=== PATIENT | female | born 1965 | race Two or more races ===

== ENCOUNTER → 2020-03-13 | Outpatient (CLI) | payer OTHER ==
[2016-05-27 11:51] VITALS: BP 107/71
[~2020-03-13] MED LIST: ALPR0.25 PO; ALPR0.5T PO; CETI10TA24 PO; CIPR250T30 PO; CYCL10TA2 PO; DOCU-109 PO; HYDR-2761 PO; OMEP40CA45 PO; TRAM50TA PO
[2020-03-13 13:56] LABS: BASO % 1 % (0-3); EOS # 0.1 x10^3/uL (0.0-0.7); EOS % 1 % (0-3); HEMATOCRIT 37.2 % (36.0-47.0); HEMOGLOBIN 12.8 g/dL (12.0-15.5); LYMPH # 2.3 x10^3/uL (1.0-4.8); LYMPH % 41 % (24-48); MEAN CORPUSCULAR HEMOGLOBIN 31 pg (25-35); MEAN CORPUSCULAR HGB CONC 34 g/dL (31-37); MEAN CORPUSCULAR VOLUME 90 fL (79-100); MONO # 0.4 x10^3/uL (0.0-1.1); MONO % 7 % (0-9); NEUT # 2.8 x10^3/uL (1.8-7.7); NEUT % 50 % (31-73); PLATELET COUNT 197 x10^3/uL (140-400); RED BLOOD COUNT 4.16 x10^6/uL (3.50-5.40); RED CELL DISTRIBUTION WIDTH 12.3 % (11.5-14.5); WHITE BLOOD COUNT 5.5 x10^3/uL (4.0-11.0)
[2020-03-13 14:12] LABS: ALBUMIN/GLOBULIN RATIO 1.1 (1.0-1.7); CALCIUM 9.1 mg/dL (8.5-10.1); CREATININE 0.9 mg/dL (0.6-1.0); GFR 64.8; POTASSIUM 3.8 mmol/L (3.5-5.1); TOTAL BILIRUBIN 0.8 mg/dL (0.2-1.0); TOTAL PROTEIN 7.8 g/dL (6.4-8.2)
== END ==
LOC: SURGPAT 13:20
PROVIDERS: ATTEND Neurological Surgery
DX: Z01.818 Encounter for other preprocedural examination (principal); Z11.59 Encounter for screening for other viral diseases; M54.12 Radiculopathy, cervical region; M54.2 Cervicalgia; Z98.1 Arthrodesis status
CPT/HCPCS: 80053; 85025; 87641; U0003

== ENCOUNTER 2020-03-18 10:50 | Observation (INO) | payer OTHER ==
--- NOTE | 2020-03-17 17:24 | HP ---
ADMIT DATE: 03/18/2020 PREOPERATIVE HISTORY AND PHYSICAL DATE OF SURGERY: 03/18/2020. HISTORY OF PRESENT ILLNESS: The patient is a pleasant 54-year-old who has difficulty with right-sided neck pain, which radiates up behind her ear to her right face and ear. This problem started in 06/2019. She rates her pain as a 10/10. She can also experienced numbness in both of her arms. She also notes intermittent mild difficulty with swallowing. She is taking Flexeril and ibuprofen. She has had cervical epidural steroid injections, which did not help. She saw a chiropractor. PAST MEDICAL HISTORY: Tuberculosis, headaches or migraines, arthritis, cold sores and fever blisters. PAST SURGICAL HISTORY: in 1984, in 1991, bunionectomy in 1992, tonsillectomy in 1969, breast reduction in 2009, rhinoplasty 2009, septoplasty 2009, LMD L4-L5 03/2015, complete hysterectomy in 1999, ACDF C5-C6 in 05/2016. FAMILY HISTORY: Cancer and diabetes. SOCIAL HISTORY: . Exercises weekly. Former smoker. Drinks alcohol 1-2 times per year. ALLERGIES: MORPHINE, CODEINE, AND SULFA. CURRENT MEDICATIONS: Omeprazole, alprazolam, Flexeril, vitamin B12, Motrin, vitamin D. REVIEW OF SYSTEMS: A 12-point review of systems was obtained and is noncontributory except for that mentioned above. PHYSICAL EXAMINATION: NEUROSURGERY EXAMINATION: GENERAL APPEARANCE: Alert, pleasant, no acute distress. HEAD: Normocephalic and atraumatic. SKIN: Warm and dry. MUSCULOSKELETAL: Well-healed cervical incision. NECK AND THYROID: [id number] tenderness with palpation along the right neck extending up behind the right ear. MUSCULOSKELETAL: Cervical paraspinal muscle bulk is normal, cervical range of motion is restricted, normal range of motion of the upper extremities bilaterally. EXTREMITIES: No clubbing, cyanosis, or edema. NEUROLOGIC: Alert and oriented x 3, normal recent and remote memory, strength 5/5 in bilateral upper and lower extremities, sensory was intact to light touch in upper and lower extremities. Reflexes are present and symmetric in upper and lower extremities bilaterally, normal gait. IMAGING: I reviewed a cervical MRI scan. At C3-C4 on the right, there is a large disc osteophyte complex with marked narrowing of the right neural foramen. She also has lateral recess and foraminal narrowing at C6-C7 below her previous anterior cervical diskectomy and fusion at C5-C6. ASSESSMENT/ PLAN: Based on the pattern of her pain, I believe the problems at the C3-L4 on the right are responsible. Although this is something that could be operated on from behind, I do feel that an anterior operation will be more effective decompressing the nerve root and the osteophyte complex. I discussed this with her in detail including the rationale, technique and risks and expected postoperative course. She understands. She would like to go ahead. We will make the arrangements. CRISTIANA DENNIS MD DR: CONNOR/bubba JOB#: [id number] / [id number] SUDEEP
[2020-03-18] VITALS (9 sets, daily range): BP systolic 107–135; BP diastolic 64–77
[~2020-03-18] VITALS: Ht 167.6 cm; Wt 75.9 kg
[~2020-03-18 10:50] MED LIST changes: +BACITRACIN 50,000 UNIT in IV NORMAL SALINE 1000ML BAG 1,000 ML IRR ONE; +BUPIVACAINE-EPI 0.5%-1:200000 MPF 30 ML VIAL. ONE; +GELATIN SPONGE SIZE 100. ONE; -HYDR-2761 PO; +IV RINGERS,LACTATED 1000ML 1,000 ML IV SCH; +ONDANSETRON PF 4 MG/2 ML VIAL. IV PRN; +PROCHLORPERAZINE 10 MG/2 ML VIAL. IV PRN; +THROMBIN TOPICAL 20,000 UNIT SPRAY.SYRN KIT TP ONE; +fentaNYL PF VIAL 100 MCG/2 ML VIAL IV PRN
[2020-03-18] MEDS ORDERED: fentaNYL PF VIAL 100 MCG/2 ML VIAL ONE ×3 (11:20→16:17)
[2020-03-18] MEDS ORDERED: PROPOFOL 50 ML IV ONE ×2 (11:20→14:21)
[2020-03-18] MEDS ORDERED: LIDOCAINE 2% PF 5 ML VIAL. ONE (11:20)
[2020-03-18] MEDS ORDERED: PROPOFOL 10 MG/ML (20ML) VIAL. IV ONE (11:20)
[2020-03-18] MEDS ORDERED: REMIFENTANIL 2 MG VIAL. IV ONE (11:21)
[2020-03-18] MEDS ORDERED: SUCCINYLCHOLINE 200 MG/10 ML VIAL. ONE (11:21)
[2020-03-18] MEDS ORDERED: ROCURONIUM 50 MG/5 ML VIAL. ONE (11:21)
[2020-03-18] MEDS ORDERED: PHENYLEPHRINE in 0.9% NACL PF 1 MG/10 ML SYRINGE. IV ONE ×2 (13:02→14:50)
[2020-03-18] MEDS ORDERED: DEXAMETHASONE SOD PHOS 20 MG/5 ML VIAL. ONE (13:19)
[2020-03-18] MEDS ORDERED: DESFLURANE 61 TO 120 MINUTES IH ONE (13:19)
[2020-03-18] MEDS ORDERED: ONDANSETRON PF 4 MG/2 ML VIAL. ONE (13:44)
[2020-03-18] MEDS ORDERED: ePHEDrine PF IN SALINE 50 MG/10 ML SYRINGE. IV ONE (13:47)
[2020-03-18] MEDS ORDERED: diphenhydrAMINE HCL 25 MG CAPSULE PO PRN (15:30)
[2020-03-18] MEDS ORDERED: HYDROcodone/APAP 5/325MG 1 TAB TABLET PO PRN ×2 (15:30)
[2020-03-18] MEDS ORDERED: MAG HYDROX/ALUMINUM HYD/SIMETH 30 ML ORAL.SUSP PO PRN (15:30)
[2020-03-18] MEDS ORDERED: CALCIUM CARBONATE 500 MG TAB.CHEW PO PRN (15:30)
[2020-03-18] MEDS ORDERED: ALPRAZolam 0.25 MG TABLET PO PRN (15:30)
[2020-03-18] MEDS ORDERED: MAGNESIUM HYDROXIDE 2,400 MG/30 ML ORAL.SUSP. PO PRN (15:30)
[2020-03-18] MEDS ORDERED: ONDANSETRON PF 4 MG/2 ML VIAL. IVP PRN (15:30)
[2020-03-18] MEDS ORDERED: CYCLOBENZAPRINE 10 MG TABLET. PO PRN (15:30)
[2020-03-18] MEDS ORDERED: 0.9 % SODIUM CHLORIDE 10 ML DISP.SYRIN. IV PRN (15:30)
[2020-03-18] MEDS ORDERED: ACETAMINOPHEN 325 MG TABLET. PO PRN (15:30)
[2020-03-18] MEDS ORDERED: NALOXONE 0.4 MG/ML VIAL. IV PRN (15:30)
[2020-03-18] MEDS: fentaNYL PF VIAL 100 MCG/2 ML VIAL IV PRN ×4 (15:46→16:54)
--- NOTE | 2020-03-18 17:15 | NUR ---
received from recovery. 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 she has good radial pulses bilateral and good sensation and motion in her lower extremities. she states she was having pain down both arms and numbness left >right arm. denies numbness in the right and slightly in left. Much better compared to prior to surgery. she does have a sore throat, but is able to swallow water at this time. given clear liquids and meal ordered. she was medicated with fentanyl iv and a Flexeril at bedside
[2020-03-18] MEDS: POTASSIUM CL 20MEQ D5-0.45NACL 1,000 ML IV SCH (17:33)
[2020-03-18] MEDS: fentaNYL PF VIAL 100 MCG/2 ML VIAL IVP PRN ×2 (17:34→21:05)
--- NOTE | 2020-03-18 18:50 | OP ---
DATE OF SURGERY: 03/18/2020 PREOPERATIVE DIAGNOSES: Foraminal narrowing with cervical radiculopathy, right C3-C4. POSTOPERATIVE DIAGNOSES: Foraminal narrowing with cervical radiculopathy, right C3-C4. OPERATION PERFORMED: Anterior cervical microdiscectomy, C3-C4; anterior cervical interbody fusion, C3-C4; anterior cervical plate, C3-C4. The operation was done with EMG monitoring, SSEP monitoring, NIMS monitoring, fluoroscopy, microscopic dissection. SURGEON: Cecilio Dennis M.D. CAR DISPATCHER: JOZEF Bernabe assisted with the surgery. She assisted with the exposure, microdecompression, placement of the interbody fusion cage and plate and closure. OPERATIVE INDICATIONS: The patient is a very pleasant 54-year-old who developed problems with severe right cervical radiculopathy. She has had problems similarly in the past and in fact underwent an ACDF in the past at C5-C6. I spoke with her about surgery and the risks involved and explained that my preference would be to operate anteriorly at this point at C3-C4. She understood the surgery and risks. She wished for me to go ahead. As speaking about the surgery, I spoke about the soft tissue structures of the neck with swelling and injury to each. I discussed the technique of the operation. I spoke about the expected postoperative course. DESCRIPTION OF PROCEDURE: Following general endotracheal anesthesia, the patient was positioned in a neutral position. The anterior cervical region was prepped and draped in the standard fashion. KATHY hose and AV impulse boots were applied for DVT prophylaxis. Microscope was draped. Fluoroscopy was draped and brought into field. Monitoring was established. Ancef 2 grams were given less than 1 hour prior to initiation of the surgery. Using fluoroscopic guidance, her previous incision, which was in a good position for the anterior approach at C3-C4 was reopened. I did carry the incision slightly further laterally. I dissected down through skin and subcutaneous tissue and I passed through to the platysma and then directed my attention to the medial aspect of sternocleidomastoid and carotid artery sheath. I reflected the trachea and esophagus contralaterally and placed self-retaining retractors, brought in the microscope. I confirmed my position fluoroscopically during this time and assured myself that I was at C3-C4. I placed lateral retractors wedged in the longus colli muscle. I placed the pins in C3 and C4, incised the anterior annulus and now with the microscope which I brought in using microscopic dissection, I incised the anterior annulus. I distracted the disc space and performed discectomy with pituitary rongeurs and scraped cartilaginous endplate. I drilled the posterior spurring and opened this widely with a 1 and 2 mm Kerrison. I opened the ligament and the annulus and fully exposed the entire region. I then measured and placed interbody fusion cage, which was packed with allograft bone. This was gently tapped into position after I obtained perfect hemostasis. I then placed an anterior plate using the [place] system and placed four 14 mm screws. I irrigated copiously. I confirmed the plate position fluoroscopically. I did lock the screws. I irrigated, I did Valsalva, and assured myself of excellent hemostasis. I closed the wound in layers with absorbable suture. The skin was closed with 4-0 subcuticular stitch. I felt the surgery went very well. CECILIO DENNIS MD DR: CONNOR/bubba JOB#: [id number] / [id number] SUDEEP
[2020-03-18] MEDS: DOCUSATE SODIUM 100 MG CAPSULE. PO SCH (21:06)
[2020-03-18] MEDS: ceFAZolin SODIUM IV Push 1 GM VIAL. IVP SCH (21:40)
[2020-03-19] MEDS: fentaNYL PF VIAL 100 MCG/2 ML VIAL IVP PRN (00:08)
[2020-03-19 03:00] VITALS: BP 128/71
[2020-03-19] MEDS: POTASSIUM CL 20MEQ D5-0.45NACL 1,000 ML IV SCH (04:46)
[2020-03-19] MEDS: ceFAZolin SODIUM IV Push 1 GM VIAL. IVP SCH (06:01)
--- NOTE | 2020-03-19 06:33 | NUR ---
Saline lock leaking. Site DC'd. Due for Ancef at 1300. Patient requests to not restart IV at this time. Hydrocodone 2 tabs given po. Requests meds to be crushed. "Feels like it gets hung up on something in my throat."
[2020-03-19 07:00] VITALS: BP 114/63
[2020-03-19] MEDS: DOCUSATE SODIUM 100 MG CAPSULE. PO SCH (08:17)
[2020-03-19] MEDS ORDERED: CETIRIZINE HCL 10 MG TABLET. PO SCH (09:00)
[2020-03-19] MEDS ORDERED: HYDR-2761 PO (09:57)
--- NOTE | 2020-03-19 09:59 | DISCH ---
DISCHARGE INSTRUCTIONS Condition on Discharge Condition on Discharge: Stable Activity After Discharge Activity Instructions for Disc: Activity as tolerated, Avoid exertion Bathing Instructions: Shower-keep dressing dry, No Tub Bath until see Lifting Instructions after Dis: No heavy lifting Exercise Instruction after Dis: Exercise per therapy, Progress as tolerated Driving Instructions after Dis: Do not drive Weight Bearing Status after Di: Full weight bearing, As tolerated Diet after Discharge Diet after Discharge: Regular Additional Diet Restrictions: resume home diet, soft diet Diet Texture: Regular Wound Incision Care Wound/Incision Care: Ice to area for comfort, Change dressing Other wound/incision instructi: may remove dressing in 48 hours, no soaking with shower Wound Care Equipment: Dressings Contacting the after DC Call your doctor for: Concerns you may have Follow-Up Follow up with: Dr. Dennis's nurse in 2 weeks [phone] Treatment/Equipment after DC Adaptive Equipment Issued: None CRISTIANA DENNIS MD Mar 19, 2020 09:59
--- NOTE | 2020-03-19 10:31 | DS ---
DATE OF DISCHARGE: 03/19/2020 DISCHARGE DIAGNOSIS: Foraminal narrowing with cervical radiculopathy, right C3-C4. OPERATION PERFORMED: Anterior cervical microdiscectomy and fusion, C3-C4. HISTORY OF PRESENT ILLNESS: The patient is a very pleasant 54-year-old, who developed problems with severe right cervical radiculopathy. She has had problems in the past and in fact underwent an ACDF at C5-C6 and did well from that. She had the above-mentioned findings on imaging studies and I recommended surgery at C3-C4. She understood the surgery and the risk. She understood the expected postoperative course and wished to go ahead. HOSPITAL COURSE: She was admitted to the floor postoperatively, where she has done well. She is up ambulating in the room and in the halls. Physical therapy was initiated and instruction was given to her regarding her activities. Her pain is well controlled. She is in good condition to discharge home. DISCHARGE MEDICATIONS: She will resume her medications per the [facility]. DISCHARGE INSTRUCTIONS: She was instructed regarding incision care, activity restrictions, and expectations for the next several weeks. She will follow up in our office in 2 weeks. She understands to call with any questions or concerns. CRISTIANA DENNIS MD DR: KEVIN/bubba JOB#: [id number] / [id number]
--- NOTE | 2020-03-19 10:59 | NUR ---
Discharged instructions given with prescriptions. Answered questions and concerns. Verbalized understanding. Pt discharge home accompanied by spouse.
[2020-03-19 11:00] VITALS: BP 110/70
== END 2020-03-19 10:59 | disposition home or self-care (01) ==
LOC: SURG 10:50 → 4 NORTH 15:45
PROVIDERS: ADMIT Neurological Surgery; ATTEND Neurological Surgery
DX: M54.12 Radiculopathy, cervical region (principal); G43.909 Migraine, unspecified, not intractable, without status migrainosus; M19.90 Unspecified osteoarthritis, unspecified site; Z90.710 Acquired absence of both cervix and uterus; Z87.891 Personal history of nicotine dependence; Z86.11 Personal history of tuberculosis
CPT/HCPCS: 20930; 22554; 22853; 76000; 96361; 96374; 96375; 96376; 97116; 97162; 97530; A7015; C1713; G0378; G0379; J0330; J0690; J0780; J1100; J2370; J2405; J2704; J3010; J3480; J7030; J7120; C1776